=== PATIENT | female | born 1955 | race Caucasian/White ===

== ENCOUNTER 2018-10-08 21:36 | Observation (INO) | payer OTHER ==
[2018-10-08] MEDS ORDERED: NS 0.9% 1000 ML* 1,000 ML IV ONE (22:19)
[2018-10-08] MEDS ORDERED: Ondansetron INJ* 2 MG/ML VIAL IV ONE (22:20)
[2018-10-08] MEDS ORDERED: Morphine VIAL* 4 MG/ML VIAL (1 ml vial) IV ONE (22:21)
--- NOTE | 2018-10-08 22:45 | ED ---
Abdominal Pain/Female - HPI Summary HPI Summary: A 63 y/o female accompanied by her presents to the ED c/o right upper quadrant abdominal pain. Currently, the patient is still experiencing severe right upper quadrant abdominal pain reaching 10/10 in severity. As per triage, "Pt c/o RUQ pain since yesterday. States she noted the pain post eating. Reports nausea and vomiting". According to the patient, she has been experiencing this RUQ abdominal pain for the past 2 days. She additionally has nausea and vomiting. She denies any diarrhea, but does have constipation. Patient also denies any vaginal discharge, vaginal bleeding, urinary pain or burning, or hematuria. Patient has no heart or lungs problems. No PMHx of cholecystectomy. Patient would like some pain medications. - History of Current Complaint Chief Complaint: EDAbdPain Stated Complaint: ABD PAIN Time Seen by Provider: 10/08/18 22:02 Hx Obtained From: Patient Onset/Duration: Sudden Onset, Lasting Days, Still Present Timing: Constant Severity Initially: Severe - 10/10 Severity Currently: Severe - 10/10 Pain Intensity: 10 Pain Scale Used: 0-10 Numeric Location: Discrete At: RUQ Radiates: No Aggravating Factor(s): Nothing Alleviating Factor(s): Nothing Allergies/Adverse Reactions: Allergies Allergy/AdvReac Type Severity Reaction Status Date / Time latex Allergy Mild Rash Verified 10/08/18 21:52 PMH/Surg Hx/FS Hx/Imm Hx Endocrine/Hematology History: Denies: Hx Diabetes, Hx Systemic Lupus Erythematosus, Hx Thyroid Disease Cardiovascular History: Reports: Hx Hypertension - on medications Denies: Hx Congestive Heart Failure Respiratory History: Denies: Hx Asthma, Hx Chronic Obstructive Pulmonary Disease (COPD) GI History: Reports: Hx Gastroesophageal Reflux Disease - TAKES OMEPRAZOLE DAILY Denies: Hx Ulcer History: Denies: Hx Dialysis, Hx Renal Disease Musculoskeletal History: Denies: Hx Rheumatoid Arthritis Sensory History: Reports: Hx Contacts or Glasses - GLASSES Denies: Hx Hearing Aid Opthamlomology History: Reports: Hx Contacts or Glasses - GLASSES Psychiatric History: Reports: Hx Depression - TAKES LEXAPRO - Cancer History Hx Chemotherapy: No - Surgical History Surgery Procedure, Year, and Place: Vein stripping 2010 Dr Quinonez 5X. Hx Anesthesia Reactions: No Infectious Disease History: No Infectious Disease History: Denies: Hx Hepatitis, Hx Human Immunodeficiency Virus (HIV), Traveled Outside the [place] in Last 30 Days - Family History Known Family History: Positive: Hypertension, Diabetes - Social History Alcohol Use: None Substance Use Type: Reports: None Smoking Status (MU): Never Smoked Tobacco Have You Smoked in the Last Year: No Review of Systems Negative: Fever Positive: Abdominal Pain, Vomiting, Nausea, Other - POSITIVE: CONSTIPATION. Negative: Diarrhea Negative: burning, dysuria, discharge, hematuria, pain All Other Systems Reviewed And Are Negative: Yes Physical Exam - Summary Physical Exam Summary: Appearance: Well appearing, Skin: warm, dry, reflects adequate perfusion Head/face: normal Eyes: EOMI, FELICITA ENT: normal Neck: supple, non-tender Respiratory: CTA, breath sounds present Cardiovascular: RRR, pulses symmetrical Abdomen: tenderness in right upper quadrant Musculoskeletal: normal, strength/ROM intact Neuro: normal, sensory motor intact, A&Ox3 Triage Information Reviewed: Yes Vital Signs On Initial Exam: Initial Vitals Temp Pulse Resp BP Pulse Ox 99.0 F 72 18 182/93 96 10/08/18 21:49 10/08/18 21:49 10/08/18 21:49 10/08/18 21:49 10/08/18 21:49 Vital Signs Reviewed: Yes Diagnostics - Vital Signs Vital Signs Temp Pulse Resp BP Pulse Ox 10/08/18 22:34 20 10/08/18 21:49 99.0 F 72 18 182/93 96 - Laboratory Result Diagrams: 10/08/18 22:54 10/08/18 22:54 Lab Statement: Any lab studies that have been ordered have been reviewed, and results considered in the medical decision making process. - Radiology CXR Radiology Interpretation Completed By: ED Physician Summary of Radiographic Findings: NO ACUTE INFILTRATE. PENDING OFFICIAL REPORT. - CT CT A/P CT Interpretation Completed By: Radiologist Summary of CT Findings: 1. Cholelithiasis without findings of acute cholecystitis. No additional. findings to correlate with patient's symptomatology. 2. Nonobstructing left renal calculus. 3. Bosniak type I renal cysts. No followup indicated. ED PHYSICIAN REVIEWED THIS RADIOLOGY REPORT. ED PHYSICIAN REVIEWED THIS RADIOLOGY REPORT. - Ultrasound No standard instances Ultrasound Interpretation Completed By: Radiologist Summary of Ultrasound Findings: GALLBLADDER US: 1. Cholelithiasis without additional findings of cholecystitis. 2. Hepatic steatosis and associated hepatomegaly. ED PHYSICIAN REVIEWED THIS RADIOLOGY REPORT. - EKG 2245 Cardiac Rate: NL - 68 BPM EKG Rhythm: Sinus Rhythm - [address] Segment: Non-Specific Re-Evaluation - Re-Evaluation First Eval Re-Evaluation Time: 01:40 Change: Unchanged Comment: PATIENT STILL IN PAIN. Abdominal Pain Fem Course/Dx - Course Course Of Treatment: A 63 y/o female accompanied by her presents to the ED c/o right upper quadrant abdominal pain. Currently, the patient is still experiencing severe right upper quadrant abdominal pain reaching 10/10 in severity. According to the patient, she has been experiencing this RUQ abdominal pain for the past 2 days. She additionally has nausea and vomiting. She denies any diarrhea, but does have constipation. Patient also denies any vaginal discharge, vaginal bleeding, urinary pain or burning, or hematuria. Physical examination findings significant for right upper quadrant tenderness. A CXR revealed no acute infiltrate. A CT A/P revealed 1. Cholelithiasis without findings of acute cholecystitis. No additional findings to correlate with patient's symptomatology. 2. Nonobstructing left renal calculus. 3. Bosniak type I renal cysts. No followup indicated. A Gallbladder US revealed 1. Cholelithiasis without additional findings of cholecystitis. 2. Hepatic steatosis and associated hepatomegaly. An EKG revealed NSR of 68 BPM, non- specific ST. Hematology, Chemistry, and urinalysis screens were done. No significant laboratory abnormalities were found. In the ED course, the patient received Dilaudid, Zofran, Piperacillin, and IV fluids. Patient care was discussed with Dr. Anthony Clemons, who recommends CAT scan. Dr. Clemons than accepts patient for admission. Patient will be admitted with a diagnosis of cholelithasis and abdominal pain. Patient is agreeable with this plan. - Diagnoses Differential Diagnosis: Positive: Diverticulitis, Gall Bladder Disease, Pancreatitis, Renal Colic Provider Diagnoses: Cholelithiasis, Abdominal pain - Provider Notifications Discussed Care Of Patient With: Anthony Clemons Time Discussed With Above Provider: 00:08 Instructed by Provider To: Other - RECOMMENDS CAT SCAN. 0200 - Accepts patient for admission. Discharge - Sign-Out/Discharge Documenting (check all that apply): Patient Departure - ADMIT, Sign-Out Patient - LINA Signing out patient TO: Anthony Clemons Receiving patient FROM: Ludwin Ashby - Discharge Plan Condition: Stable Disposition: ADMITTED TO [facility] - Billing Disposition and Condition Condition: STABLE Disposition: Admitted to [facility] - Attestation Statements Document Initiated by Abram: Yes Documenting Scribe: Adan Santo Provider For Whom Abram is Documenting (Include Credential): Ludwin Ashby MD Scribe Attestation: Adan Davis, scribed for Ludwin Ashby MD on 10/09/18 at 0245. Scribe Documentation Reviewed: Yes Provider Attestation: The documentation as recorded by the Adan little accurately reflects the service I personally performed and the decisions made by Ludwin sheriff MD Status of Scribe Document: Viewed
[2018-10-08 22:51] LABS: Urine Appearance Turbid; Urine Bilirubin Negative (Negative); Urine Blood Negative (Negative); Urine Color Yellow; Urine Glucose 1+(50 mg/dL) (Negative); Urine Ketones Trace (Negative); Urine Nitrite Negative (Negative); Urine Protein Negative (Negative); Urine Specific Gravity 1.026 (1.010-1.030); Urine Urobilinogen Positive (Negative)
[2018-10-08 23:01] LABS: ABS Basophils 0 10^3/ul (0-0.2); ABS Eosinophils 0 10^3/ul (0-0.6); ABS Lymphocytes 1.1 10^3/ul (1.0-4.8); ABS Monocytes 0.2 10^3/ul (0-0.8); ABS Neutrophils 5.5 10^3/ul (1.5-7.7); ABS Nucleated RBC 0 10^3/ul; Eosinophil % 0.2 %; Hematocrit 42 % (35-47); Hemoglobin 14.1 g/dl (12.0-16.0); Lymphocyte % 16.3 %; Mean Corpuscular HGB Conc 34 g/dl (31-36); Mean Corpuscular Hemoglobin 30 pg (27-31); Mean Corpuscular Volume 88 fL (80-97); Mean Platelet Volume 8.3 fL (7.4-10.4); Nucleated Red Blood Cells % 0; Platelet Count 173 10^3/ul (150-450); Red Blood Count 4.73 10^6/ul (4.00-5.40); Red Cell Distribution Width 14 % (10.5-15); White Blood Count 6.9 10^3/ul (3.5-10.8)
[2018-10-08 23:14] LABS: INR 1.08 (0.77-1.02)
[2018-10-08 23:18] LABS: Albumin 3.9 g/dL (3.2-5.2); Albumin/Globulin Ratio 1.6 (1-3); BUN/Creatinine Ratio 23.9 (8-20); Calcium 8.9 mg/dL (8.6-10.3); EGFR Non-African American 88.6 (>60); Globulin 2.4 g/dL (2-4); Potassium 3.4 mmol/L (3.5-5.0); Total Bilirubin 1.3 mg/dL (0.2-1.0); Total Protein 6.3 g/dL (6.4-8.9)
[2018-10-09] MEDS ORDERED: HYDROmorphone INJ* 2 MG/ML CARPUJECT SYRINGE IV SLOW PU ONE (00:02)
[2018-10-09] MEDS ORDERED: HYDROmorphone INJ1* 1 MG/ML SYRINGE ONE (00:06)
[2018-10-09] MEDS ORDERED: HYDROmorphone INJ1* 1 MG/ML SYRINGE IV SLOW PU ONE (00:09)
[2018-10-09] MEDS ORDERED: Iohexol 300* (CONTRAST) 10 ML SDV IV ONE (00:44)
[2018-10-09] MEDS ORDERED: Ondansetron INJ* 2 MG/ML VIAL IV PRN (01:57)
[2018-10-09] MEDS ORDERED: Piperacillin/Tazobac ADVAN(*) 3.375 GM in NS 0.9% 100 ML* 100 ML IVPB ONE (01:57)
[2018-10-09] MEDS: NS 0.9% 1000 ML* 1,000 ML IV SCH ×2 (03:07→17:24)
[2018-10-09] MEDS: HYDROmorphone INJ* 0.5 MG/0.5 ML SYRINGE IV SLOW PU PRN ×6 (03:08→19:42)
--- NOTE | 2018-10-09 08:57 | CONSULT ---
Consult Consult: HOSPITALIST CONSULTATION: REQUESTING PROVIDER: Dr. Clemons REASON FOR CONSULTATION: Pre-op cardiac risk stratification HPI: Ms Quiroz is a 63 yo F who has a h/o HTN, anxiety and GERD who noted a couple months ago she had RUQ abdominal pain. It went away on its own and she never sought evaluation. This past 10/07/18, she again developed severe RUQ abdominal pain. She describes this as both crampy and stabbing at times. She has associated nausea and poor appetite. She presented to the ER where she was identified to have acute cholecystitis. Hospitalist consultation was requested for pre-op cardiac risk stratification. The patient states she is able to walk long distances without needing to stop to catch her breath and she can climb a flight of stairs without chest pain or SOB. She does not have CP or SOB at any other times either. She states she had a stress test several years ago with Dr. Cavazos. Results from this are unobtainable at this time. She does not report having any further testing after the stress test nor does she give a history of CAD. PMHx: HTN, anxiety, GERD PSHx: bilateral vein stripping All: latex Med: bisoprolol/HCTZ 10-6.25 1 tab po daily; lexapro 10mg daily; omeprazole 20mg daily FamHx: Mom of liver failure at 79 (unclear what caused her liver failure); dad at 69 of [place] SocHx: Pt is a life long non-smoker, she does not drink EtOH, she is retired from food service utility worker; she is and has 2 children who are healthy. Her Hakeem is her HCP. ROS: a complete 11 system ROS is obtained, pertinent positives and negatives are as per HPI and otherwise negative. PE: BP159/80 HR87 RR14 T98.3 O2 sat 94% on RA\ general: pt is a well developed middle aged female lying in bed, at times appearing uncomfortable but in NAD HEENT: EOMI, oropharynx is dry, no adenopathy noted cardiac: nl S1S2 RRR, no murmurs, no LE edema pulmonary: lungs are CTA bilaterally abdomen: BS hypoactive, soft, ND, tender to palpation in the RUQ musculoskeletal: full ROM of all 4 extremities skin: warm and dry, no rashes neuro: CN II-XII grossly intact, strength is normal throughout psych: A&Ox3 Labs: reviewed A/P: Ms Quiroz is a 63 yo F who has a h/o HTN who presented to the ER with RUQ pain and was found to have acute cholecystitis. 1. Acute cholecystitis: plan is for the OR this AM. The patient's EKG from last evening does have ST depressions in the lateral leads and while her troponin is negative and she does not give any history of CAD, chest pain or SOB, I feel she should undergo echocardiogram prior to proceeding. I have ordered the echo and alerted the experimental technician. The patient's RCRI is 1 giving her a 0.% risk of major cardiac event. If the echo is without any concerning features the patient should proceed to the OR. I am also ordering a repeat EKG to re-evaluate the ST depressions. 2. HTN: will hold bisoprolol/HCTZ and give biosprolol 5mg po now. Post op the patient can resume bisoprolol 10mg daily and on d/c likely add back HCTZ. 3. Anxiety: resume lexapro post op 4. GERD: continue omeprazole post op 5. I will continue to follow.
[2018-10-09] MEDS ORDERED: Bisoprolol TAB* 5 MG PO ONE (09:00)
--- NOTE | 2018-10-09 10:43 | ECHO ---
Patient: MARYLOU BLUE [facility] Rec#: [id number] : 1955 Date: 10/09/2018 Age: 63y Height: 167.64 cm / 66.0 in Weight: 90.72 kg / 199.9 lbs Sex: F BSA: 2 Room#: 340 Admit Date#: 10/09/2018 Type: Inpatient Referring: Summer Frye DO Reading: Quang Broussard MD Insulation Engineman: Lacie Matthews RDCS CC: Pamela Cadena MD Transthoracic Echocardiogram Indication: Abn EKG BP: 159/80 HR: 101 Rhythm: Tachycardia Findings History: RUQ pain,depression,nonsmoker,nonspecific ST changes on EKG,GERD. Technical Comments: The study is technically difficult. Completed at 0940. The study is technically limited due to patient body habitus. Left Ventricle: The left ventricular chamber size is decreased. Mild concentric left ventricular hypertrophy is observed. Global left ventricular wall motion and contractility are within normal limits. There is normal left ventricular systolic function. The estimated ejection fraction is 55-60%. Abnormal left ventricular diastolic function is observed. Left Atrium: The left atrium is mildly dilated. Right Ventricle: The right ventricular cavity size is normal. The right ventricular global systolic function is normal. Right Atrium: The right atrial cavity size is normal. Aortic Valve: The aortic valve is trileaflet. There is no evidence of aortic regurgitation. There is no evidence of aortic stenosis. Mitral Valve: The mitral valve leaflets are mildly thickened. There is a trace of mitral regurgitation. There is no evidence of mitral stenosis. Tricuspid Valve: The tricuspid valve leaflets are normal. There is trace tricuspid regurgitation. Unable to estimate the right ventricular systolic pressure. There is no tricuspid stenosis. Pulmonic Valve: The pulmonic valve appears normal. There is trace to mild pulmonic regurgitation. There is no pulmonic stenosis. Pericardium: A pericardial fat pad is visualized. Aorta: There is no dilatation of the ascending aorta. There is no dilatation of the aortic arch. There is no dilation of the aortic root. Pulmonary Artery: The main pulmonary artery appears normal. Venous: The venous system is not well visualized. Patient refused subcostal view due to abdominal pain. Summary: There was not any prior study for comparison. Conclusions Mild concentric left ventricular hypertrophy is observed. Global left ventricular wall motion and contractility are within normal limits. The estimated ejection fraction is 55-60%. There is no evidence of aortic stenosis. There is a trace of mitral regurgitation. There is trace tricuspid regurgitation. Unable to estimate the right ventricular systolic pressure. Measurements Name Value Normal Range RVIDd (AP) 2D 3 cm (0.9 - 2.6) RVDdMajor (2D) 2.8 cm (2.2 - 4.4) RAd ISD 4CH 3.9 cm (3.4 - 4.9) RA (A4C)W 3.3 cm (2.9 - 4.6) IVSd (2D) 1.2 cm (0.6 - 1) LVPWd (2D) 1.1 cm (0.6 - 1) LVIDd (2D) 3.3 cm (3.6 - 5.4) LVIDs (2D) 2.3 cm - LV FS (2D) 31 % (25 - 45) Aortic Annulus 2.3 cm (1.4 - 2.6) Ao root diameter (2D) 3.5 cm (2.1 - 3.5) Ascending Ao 3.3 cm (2.1 - 3.4) Aortic arch 2.4 cm (1.8 - 3.4) Descending Ao 0.8 cm - LA dimension (AP) 2D 4 cm (2.3 - 3.8) LAd ISD 4CH 4.9 cm (2.9 - 5.3) LA ISD 4CH W 3.3 cm (2.5 - 4.5) Name Value Normal Range LA ESV SP 4CH (A/L) 38 ml - LA ESV SP 2CH (A/L) 41 ml - LA ESV BP (A/L) 40 ml - LA ESV BP (A/L) index 19.8 ml/m2 - LA ESV SP 4CH (MOD) 37 ml - LA ESV SP 2CH (MOD) 39 ml - Name Value Normal Range MV E-wave Vmax 0.7 m/sec - MV deceleration time 204 msec - MV A-wave Vmax 1 m/sec - MV E:A ratio 0.75 ratio - LV septal e' Vmax 0.08 m/sec - LV lateral e' Vmax 0.09 m/sec - LV E:e' septal ratio 8.75 ratio - LV E:e' lateral ratio 7.78 ratio - Name Value Normal Range AV Vmax 1.3 m/sec - AV VTI 27.6 cm - AV peak gradient 6.74 mmHg - AV mean gradient 3.27 mmHg - LVOT Vmax 1.1 m/sec - LVOT VTI 22.7 cm - LVOT peak gradient 5.1 mmHg - LVOT mean gradient 2.24 mmHg - Name Value Normal Range PV Vmax 0.8 m/sec - PV peak gradient 2.83 mmHg -
--- NOTE | 2018-10-09 12:03 | HP ---
CC: Dr. Pamela Cadena * HISTORY AND PHYSICAL: DATE OF ADMISSION: 10/09/18 CHIEF COMPLAINT: Epigastric and right upper quadrant abdominal pain. HISTORY OF PRESENT ILLNESS: Ms. Lakeisha Quiroz is a very pleasant 63-year-old woman who, on Wednesday evening, developed some epigastric and right upper quadrant abdominal pain, radiating to her back. She has had several episodes of this pain that have only lasted for several hours and she has not sought care for this in the past. She developed some nausea and vomiting yesterday. The pain has persisted over the past 36 hours, with worsening in severity, and she presented to the emergency room early this morning. She denied fevers, shakes or chills. She has had no jaundice. She has had no lower abdominal pain or change in bowel habits. She does have a history of gastroesophageal reflux disease. In the emergency room, she was noted to have a normal white blood cell count. Electrolytes, BUN, and creatinine were within normal limits. She had a total bilirubin of 1.3, with AST and ALT of 88 and 65, and an alkaline phosphatase of 105, all of which were slightly elevated. Lipase was normal. She initially underwent an ultrasound of her gallbladder. I did review these images. These showed gallstones with some associated sludge. There appear to be possibility of a gallstone in the neck of gallbladder. There was no gallbladder wall thickening or pericholecystic fluid. The common bile duct measured 0.6 cm. She also underwent a CT scan of the abdomen and pelvis. I did review these images. These showed no evidence of thickening of the gallbladder wall or pericholecystic fluid/inflammation. There were no other acute findings noted. In light of her persistent discomfort in the right upper quadrant and gallstones and mild elevation of her transaminase and total bilirubin, it was felt that she most likely had acute calculous cholecystitis, so she was admitted for further care. PAST MEDICAL HISTORY: 1. Hypertension. 2. Gastroesophageal reflux disease. 3. Depression. PAST SURGICAL HISTORY: Venous surgery in the lower extremities. She has had no abdominal surgery. MEDICATIONS: Include: 1. Bisoprolol/hydrochlorothiazide 10/6.25 mg, 1 tablet p.o. q.a.m. 2. Lexapro 10 mg q.a.m. 3. Omeprazole 20 mg q.a.m. ALLERGIES: She is allergic to LATEX. SOCIAL HISTORY: She does not smoke or drink. She is and retired. REVIEW OF SYSTEMS: Otherwise unremarkable and as per above. PHYSICAL EXAMINATION GENERAL: She is an overweight female with normal attention to grooming. She is awake, alert, and conversive. VITAL SIGNS: Temperature 98.3, pulse 87, blood pressure 159/80, and respirations 16. LUNGS: Clear to auscultation with normal respiratory effort. HEART: Regular rate and rhythm, without murmurs, rubs or gallops. ABDOMEN: Soft, slightly distended. There are no prior surgical incisions. There are no hernias noted. She has tenderness in the epigastrium and right upper quadrant with some voluntary guarding. There is no generalized peritoneal irritation. PSYCHIATRIC: She is awake, alert, and oriented x3. She has normal judgment and insight. EXTREMITIES: No cyanosis or edema. IMPRESSION: 1. Cholelithiasis and right upper quadrant abdominal pain. She has some mild elevation of total bilirubin and liver transaminases. I suspect that she has acute calculous cholecystitis by her history of persistent pain over the past 36 hours despite the findings on the CT scan. 2. Hypertension. 3. EKG was reviewed. There may be some ST changes noted inferiorly. PLAN: 1. The patient will be admitted to the surgical service on short-stay unit. 2. IV antibiotics including IV Zosyn as well as IV fluids have been started. 3. She will be kept n.p.o. 4. Medical evaluation will be obtained in anticipation of a cholecystectomy either today or tomorrow. 5. Laparoscopic cholecystectomy. I recommend that she proceed as her pain has persisted, going on for 48 hours now, and she does have gallstones. I suspect she has acute calculous cholecystitis. We discussed the risks of, but not limited to, bleeding, infection, common bile duct injury requiring further reconstruction, possibility of an open procedure, abscess formation, bile leak, risk of general anesthesia, injury to peritoneal and retroperitoneal structures , deep vein thrombosis, and pulmonary embolism were all discussed. We discussed postoperative recovery times and possible hospital stay. The alternative of IV antibiotics with nonoperative management were discussed, but I do not believe that she will respond well to this and surgery is recommended and she wishes to proceed. [id number]/[facility] #: [id number] [facility]
[2018-10-09] MEDS ORDERED: Dexamethasone IV* 4 MG/ML 1 ML (4 MG) ONE (12:14)
[2018-10-09] MEDS ORDERED: KETAMINE HCL* 50 MG/ML 10 ML VIAL ONE (12:14)
[2018-10-09] MEDS ORDERED: Midazolam* 1 MG/ML 5 ML VIAL (5 MG) ONE (12:14)
[2018-10-09] MEDS ORDERED: fentaNYL* 50 MCG/ML 2 ML VIAL (100 MCG VIAL) ONE ×3 (12:14→16:40)
[2018-10-09] MEDS ORDERED: Ondansetron INJ* 2 MG/ML VIAL ONE (12:14)
[2018-10-09] MEDS ORDERED: Propofol* 10 MG/ML 20 ML BTL ONE (12:14)
[2018-10-09] MEDS ORDERED: Cisatracurium* 2 MG/ML MDV 5 ML ONE (12:14)
[2018-10-09] MEDS ORDERED: Ketorolac INJ* 30 MG/ML 1 ML VIAL ONE (12:14)
[2018-10-09] MEDS ORDERED: Lidocaine 2% PF * 5 ML VIAL ONE (12:14)
[2018-10-09] MEDS ORDERED: Bupivacaine 0.25% W/EPI* 10 ML SDV ONE (12:17)
[2018-10-09] MEDS ORDERED: Scopolamine 1.5 mg* PATCH ONE (12:33)
[2018-10-09] MEDS ORDERED: Famotidine IV* 10 MG/ML 2 ML (20 mg) ONE (13:25)
[2018-10-09] MEDS ORDERED: Metoclopramide IV* 5 MG/ML 2 ML VIAL ONE (13:25)
[2018-10-09] MEDS ORDERED: EPHEDrine (Pressors)* 50 MG/ML VIAL ONE (13:28)
[2018-10-09] MEDS ORDERED: Glycopyrrolate IV* 0.2 MG/ML 1 ML VIAL ONE (14:09)
[2018-10-09] MEDS ORDERED: Neostigmine Methylsulfate* 1 MG/ML 10 ML VIAL (1 mg/ml) ONE (14:09)
--- NOTE | 2018-10-09 14:34 | BRIEFOPN ---
Brief Operative Note - Surgery Procedures: Procedures OPERATIVE REPORT PRE-OP: Acute calculous cholecystitis POST-OP:Acute calculous gangrenous cholecystitis PROCEDURE:Laparoscopic Cholecystectomy SURGEON: MD Deonte ANESTHESIA:Local with General, Dr. Wick ASST:none IVF:1900 cc crystalloid EBL:NR SPECIMEN:Gallbladder DRAIN:#10 PATY in RUQ WOUND CLASS:4 COMPLICATIONS: none TO PACU
[2018-10-09] MEDS ORDERED: Naloxone* 0.4 MG/ML 1 ML VIAL IV PRN (16:23)
[2018-10-09] MEDS ORDERED: HYDROmorphone INJ1* 1 MG/ML SYRINGE IV PRN (17:08)
[2018-10-09] MEDS ORDERED: oxyCODONE/Acetamin 5/325 MG* TAB PO PRN (17:09)
[2018-10-09] MEDS ORDERED: ZOSYN 3.375 GM x ONE DOSE over 30 miuntes IVPB ×2 (18:00)
[2018-10-09] MEDS: Ketorolac INJ* 30 MG/ML 1 ML VIAL IV PRN (19:42)
--- NOTE | 2018-10-09 21:17 | OP ---
CC: Dr. Pamela Cadena, Primary Medicine * DATE OF OPERATION: 10/09/18 - ROOM #340 DATE OF : 53 SURGEON: Anthony Clemons MD DEPORTATION OFFICER: None. ANESTHESIOLOGIST: Dr. Wick. ANESTHESIA: General with local. PRE-OP DIAGNOSIS: Acute calculus cholecystitis. POST-OP DIAGNOSIS: Acute calculus gangrenous cholecystitis. OPERATIVE PROCEDURE: Laparoscopic cholecystectomy. ESTIMATED BLOOD LOSS: Not recorded. IV FLUIDS: 1.9 L of crystalloid. SPECIMENS: Gallbladder. DRAINS: A #10 PAYT drain in the right upper quadrant. WOUND CLASSIFICATION: IV. COMPLICATIONS: None. BRIEF HISTORY: Lakeisha Quiroz is a 63-year-old woman who presented to the emergency room early this morning with severe right upper quadrant abdominal pain that started almost 48 hours ago. An ultrasound showed gallstones without gallbladder wall thickening or pericholecystic fluid and she had a normal white blood cell count. She had a mild elevation of her total bilirubin, however. CAT scan showed no other acute pathology. She has tenderness in the right upper quadrant on exam and in conjunction with the findings of the gallstones in her history, which is consistent with cholecystitis, she is being taken to the operating room after medical evaluation for cholecystectomy. The procedure was discussed with the patient and the risks that are but not limited to bleeding, infection, abscess formation, common bile duct injury, bile leak, abscess, possibility of an open procedure and the risks of anesthesia were all explained. DESCRIPTION OF PROCEDURE: Written informed consent was obtained, the abdomen was marked with indelible ink and preoperative antibiotics were administered. The patient was taken to the operating room and placed in the supine position. Sequential compression devices and a warming blanket were applied. General anesthesia was administered. Time-out verification was completed. A small transverse incision was made just above umbilicus at the midline. The peritoneal cavity was entered under direct vision. The abdomen was insufflated to 15 mmHg. Under direct vision, an 11-mm epigastric port was placed and two 5-mm ports were placed in the right side of the abdominal wall. The liver was identified. It had significant fatty infiltrate but no evidence of cirrhosis or nodularity. There was omentum that was adherent to the gallbladder and this was swept off using blunt dissection to expose a markedly distended gangrenous valenzuela colored gallbladder. I was unable to grasp this; however, we decompressed this with an 18-gauge needle of about 50 cc of dark green bile. The gallbladder was then able to be elevated up over the liver bed. There was a significant amount of inflammation down in the infundibular area, which was edematous and bled easily but the peritoneum along the medial and lateral aspects of the gallbladder was opened and this area was swept down. There was an enlarged lymph node, which was quite edematous, which was swept off the medial aspect of the gallbladder. With care, I was able to identify the cystic duct and artery as it entered the gallbladder and using the critical view technique, I took a considerable portion of the inferior part of the gallbladder off the liver bed to ensure myself of these two structures. The cystic duct was of expected caliber and was triply clipped and divided. The artery appeared to have several small branches, which were clipped. The gallbladder was then removed from the liver bed with cautery with some difficulty due to the inflammation. The gallbladder was placed in an EndoCatch bag and brought out through the epigastric incision. The liver bed was then irrigated as well as the right upper quadrant. Hemostasis was assured. There had been some spillage of bile while grasping but this was thoroughly irrigated. There were no stones that were left behind. A #10 PATY drain was placed in the right upper quadrant and brought out through the lateral 5 mm port site. This was sutured to the skin with a 3-0 Prolene suture. All ports were removed under direct vision of the camera. There was no abdominal wall bleeding. The umbilical fascia was closed with interrupted 0 Vicryl suture. The skin at all 3 incisions was approximated with subcuticular 4-0 Vicryl suture. Steri- Strips were placed. The patient tolerated the procedure well and was taken to the recovery room in stable condition. [id number]/[facility] #: [id number] SHANNAN
[2018-10-09] MEDS ORDERED: NS 0.9% 100 ML* 100 ML ONE (21:24)
[2018-10-09] MEDS: ZOSYN 3.375 GM Q8H per EXTENDED INFUSION IVPB SCH ×2 (21:27)
[2018-10-09] MEDS: Famotidine IV* 10 MG/ML 2 ML (20 mg) IV SCH (21:27)
[2018-10-10] MEDS: NS 0.9% 1000 ML* 1,000 ML IV SCH ×3 (02:26→20:36)
[2018-10-10] MEDS: ZOSYN 3.375 GM Q8H per EXTENDED INFUSION IVPB SCH ×6 (05:18→21:42)
[2018-10-10] MEDS: HYDROmorphone INJ* 0.5 MG/0.5 ML SYRINGE IV SLOW PU PRN (05:21)
--- NOTE | 2018-10-10 09:13 | PN ---
Progress Note - Progress Note Date of Service: 10/10/18 SOAP: Subjective: Feels much better Taking minimal po Passing flatus Objective: Temp Pulse Resp BP Pulse Ox 98.0 F 61 16 102/42 94 10/10/18 07:34 10/10/18 07:34 10/10/18 07:34 10/10/18 07:34 10/10/18 07:34 Intake & Output 10/08/18 10/09/18 10/10/18 10/11/18 06:59 06:59 06:59 06:59 Intake Total 1000 3595 Output Total 0 545 Balance 1000 3050 Weight 200 lb Intake: IV Fluids 1000 3195 LR 2000 zosyn 1095 Oral 0 400 Output: PATY #1 145 Urine 0 400 PEX: Comfortable Lungs are clear Abd is soft and non-distended. Bowel sounds are present. Incisions CDI PATY with small amount of SG fluid in bulb No leg edema Assessment: POD# 1 s/p lap choly for acute cholecytitis Taking minimal po Plan: IV abx for 24 more hours PATY drain Advance diet Increase activity Subq heparin Plan D/C 10/11--remove APTY on d/c, 5 days of antibiotics
[2018-10-10] MEDS: Ketorolac INJ* 30 MG/ML 1 ML VIAL IV PRN (09:39)
[2018-10-10] MEDS: Famotidine IV* 10 MG/ML 2 ML (20 mg) IV SCH (09:40)
--- NOTE | 2018-10-10 10:20 | PN ---
Subjective Date of Service: 10/10/18 Interval History: Pt is feeling much better today than when I met with her yesterday. She has mild pain. She has not taken much in by mouth and is not really passing gas. No BM. Objective Active Medications: Famotidine (Pepcid Iv*) 20 mg IV BID [facility] Last Admin: 10/10/18 09:40 Dose: 20 mg Heparin Sodium (Porcine) (Heparin Vial(*)) 5,000 units SUBCUT Q8HR [facility] Hydromorphone HCl (Dilaudid Inj*) 0.5 mg IV SLOW PU Q1H PRN PRN Reason: PAIN Last Admin: 10/10/18 05:21 Dose: 0.5 mg Hydromorphone HCl (Dilaudid Inj1s*) 1 mg IV Q1H PRN PRN Reason: SEVERE PAIN Sodium Chloride (Ns 0.9% 1000 Ml*) 1,000 mls @ 125 mls/hr IV PER RATE [facility] Last Admin: 10/10/18 02:26 Dose: 125 mls/hr Piperacillin Sod/Tazobactam (Sod 3.375 gm/ Sodium Chloride) 100 mls @ 25 mls/ hr IVPB Q8H [facility] Last Admin: 10/10/18 05:18 Dose: 25 mls/hr Ketorolac Tromethamine (Toradol Inj*) 30 mg IV Q6H PRN PRN Reason: PAIN Last Admin: 10/10/18 09:39 Dose: 30 mg Ondansetron HCl (Zofran Inj*) 4 mg IV Q6H PRN PRN Reason: NAUSEA Oxycodone/Acetaminophen (Percocet 5/325 Tab*) 2 tab PO Q4H PRN PRN Reason: SEVERE PAIN Oxycodone/Acetaminophen (Percocet 5/325 Tab*) 1 tab PO Q4H PRN PRN Reason: PAIN Vital Signs - 8 hr 10/10/18 10/10/18 10/10/18 03:19 04:04 05:21 Temperature 97.6 F Pulse Rate 62 Respiratory 16 18 Rate Blood Pressure 120/46 (mmHg) O2 Sat by Pulse 94 95 Oximetry 10/10/18 10/10/18 10/10/18 06:22 07:34 09:40 Temperature 98.0 F Pulse Rate 61 Respiratory 16 16 18 Rate Blood Pressure 102/42 (mmHg) O2 Sat by Pulse 94 Oximetry Oxygen Devices in Use Now: None Appearance: Middle aged female sitting up in bed, NAD Eyes: No Scleral Icterus Ears/Nose/Mouth/Throat: Mucous Membranes Moist Respiratory: Symmetrical Chest Expansion and Respiratory Effort, Clear to Auscultation Cardiovascular: NL Sounds; No Murmurs; No JVD, RRR, No Edema Abdominal: - - BS hypoactive, soft Extremities: No Clubbing, Cyanosis Skin: No Nodules or Sclerosis Neurological: Alert and Oriented x 3 Result Diagrams: 10/08/18 22:54 10/08/18 22:54 Assess/Plan/Problems-Billing Ms Quiroz is a 63 yo F who has a h/o HTN, anxiety and GERD who presented to the ER with c/o RUQ abdominal pain and was admitted for acute cholecystitis. - Patient Problems (1) Acute acalculous cholecystitis Current Visit: Yes Status: Acute Code(s): K81.0 - ACUTE CHOLECYSTITIS SNOMED Code(s): 96095642 Comment: The patient was found to have acute acalculous gangrenous cholecystitis in the OR. Per Dr. Clemons plan is to continue IV Abx [id number] hours and d/c home tomorrow. Increase diet and await BM. (2) HTN (hypertension) Current Visit: Yes Status: Acute Code(s): I10 - ESSENTIAL (PRIMARY) HYPERTENSION SNOMED Code(s): 11468120 Comment: BP is low normal today. Hold bisoprolol/HCTZ today and resume on d/ c if SBP>110. (3) Anxiety Current Visit: Yes Status: Acute Code(s): F41.9 - ANXIETY DISORDER, UNSPECIFIED SNOMED Code(s): 48591858 Comment: Resume lexapro. (4) GERD (gastroesophageal reflux disease) Current Visit: Yes Status: Acute Code(s): K21.9 - GASTRO-ESOPHAGEAL REFLUX DISEASE WITHOUT ESOPHAGITIS SNOMED Code(s): 358434230 Comment: Stop IV pepcid and change to oral omeprazole. (5) DVT prophylaxis Current Visit: Yes Status: Acute Code(s): NAL1425 - SNOMED Code(s): 089898443 Comment: SQ heparin (6) Full code status Current Visit: Yes Status: Acute Code(s): Z78.9 - OTHER SPECIFIED HEALTH STATUS SNOMED Code(s): 338646709 Status and Disposition: Will sign off, please contact [phone] for further questions.
[2018-10-10 10:29] LABS: Activated Partial Thrombo Time 31.9 seconds (26.0-36.3); INR 1.25 (0.77-1.02)
[2018-10-10] MEDS: Omeprazole CAP* 20 MG PO SCH (11:13)
[2018-10-10] MEDS: Heparin VIAL(*) 5000 UNITS/ML VIAL (FIVE THOUSAND) SUBCUT SCH ×2 (14:03→21:42)
[2018-10-10] MEDS: CMC:Escitalopram (NF) 10 MG TAB PO SCH (14:03)
[2018-10-10] MEDS: oxyCODONE/Acetamin 5/325 MG* TAB PO PRN ×2 (14:55→21:40)
[2018-10-11] MEDS: NS 0.9% 1000 ML* 1,000 ML IV SCH (04:37)
[2018-10-11] MEDS: Heparin VIAL(*) 5000 UNITS/ML VIAL (FIVE THOUSAND) SUBCUT SCH (05:34)
[2018-10-11] MEDS: ZOSYN 3.375 GM Q8H per EXTENDED INFUSION IVPB SCH ×2 (05:34)
[2018-10-11] MEDS: Ketorolac INJ* 30 MG/ML 1 ML VIAL IV PRN (06:23)
[2018-10-11] MEDS: CMC:Escitalopram (NF) 10 MG TAB PO SCH (08:18)
[2018-10-11] MEDS: Omeprazole CAP* 20 MG PO SCH (08:18)
[2018-10-11 08:25] VITALS: BP 116/57
--- NOTE | 2018-10-11 09:12 | PN ---
Progress Note - Progress Note Date of Service: 10/11/18 Note: POD#2 S/P cholecystctomy Afeb, VS noted Rosalba po's Voiding Pain control OK PATY serous, No bile Abd benign PATY removed Discharge home
--- NOTE | 2018-10-14 11:09 | DS ---
CC: [facility]; Dr. Pamela Cadena* DISCHARGE SUMMARY: DATE OF ADMISSION: 10/09/18. DATE OF DISCHARGE: 10/11/18. PRINCIPAL DIAGNOSIS: Acute gangrenous calculus cholecystitis. PROCEDURE PERFORMED: Laparoscopic cholecystectomy. SECONDARY DIAGNOSES: 1. Hypertension. 2. Gastroesophageal reflux disease. DISPOSITION: To home. CONDITION ON DISCHARGE: Good. DISPOSITION INSTRUCTION: The patient was given prescription for Percocet for discomfort to use sparingly. She was instructed to use non-steroidal pain medicine or plain Tylenol as initial pain management regimen. She is also given 5 days of oral Augmentin to take. PATY drain was removed on the day of discharge. Follow up appointment was made in the [facility] in 7 to 10 days and she was given written instructions for further follow up. HISTORY OF PRESENT ILLNESS: Ms. Lakeisha Quiroz is a 63-year-old woman who presented to the emergency room with almost 48 hours of severe epigastric right upper quadrant abdominal discomfort. She was noted to have a normal white blood cell count with mild elevation of her total bilirubin, liver transaminases. An ultrasound of the gallbladder was obtained which showed gallstones and biliary sludge without additional findings of cholecystitis. She was seen in surgical consultation in the emergency room due to persistent discomfort, felt to have acute calculus cholecystitis and was admitted to the surgical service. HOSPITAL COURSE: The patient was admitted to surgical service, kept n.p.o. and started on IV fluids and IV antibiotics. On hospital day#1, she underwent laparoscopic cholecystectomy for acute gangrenous cholecystitis. A PATY drain was placed and maintained in position for 48 hours postoperatively. She was maintained on IV antibiotics. Postoperatively, she did well. She remained afebrile. Her diet was advanced as tolerated. Her pain was adequately controlled on oral analgesia and PATY drain was discontinued on hospital day#2. She was discharged to home on postoperative day#2 with the above instructions. [id number] #: [id number] MTDD
== END 2018-10-11 10:00 | disposition home or self-care (01) ==
LOC: ED 21:36 → SSU 10-09 01:54
PROVIDERS: ADMIT Surgery; ATTEND Surgery
DX: K80.00 Calculus of gallbladder with acute cholecystitis without obstruction (principal); K82.A1 Gangrene of gallbladder in cholecystitis; I10 Essential (primary) hypertension; K21.9 Gastro-esophageal reflux disease without esophagitis; F32.9 Major depressive disorder, single episode, unspecified; Z91.040 Latex allergy status
CPT/HCPCS: 36415; 71045; 74177; 76705; 80053; 81003; 83605; 83690; 84484; 85025; 85610; 85730; 88304; 93005; 93306; 96374; 96375; 96376; 99284; A9270-GY; G0378; J1100; J1170; J1644; J1885; J2250; J2270; J2405; J2543; J2704; J2710; J2765; J3010; Q9967

== ENCOUNTER 2019-06-17 17:50 | Emergency (ER) | payer OTHER ==
--- NOTE | 2019-06-17 18:12 | ED ---
HPI Chest Pain - HPI Summary HPI Summary: Patient complains of sudden onset upper right lateral chest wall pain starting this afternoon. Pain initially mild, but has been progressive. Worse with movement, deep inhalation, described as sharp, constant. Denies fever, cough, sore throat, CP, SOB, N/V/D, abdominal pain, change in urine, change in BM, vaginal symptoms. Medical history is HTN, GERD. History of acalculus cholecystitis with gallbladder removed in September 2018. Nonsmoker. Denies cardiac history. Took ibuprofen 400 mg at 3 PM with no relief. - History of Current Complaint Chief Complaint: EDGeneral Time Seen by Provider: 06/17/19 18:01 Hx Obtained From: Patient Onset/Duration: Started Hours Ago Timing: Constant Initial Severity: Mild Current Severity: Severe - With movement Pain Intensity: 10 Pain Scale Used: 0-10 Numeric Chest Pain Location: Right Lateral Chest Pain Radiates: No Character: Sharp/Stabbing Aggravating Factor(s): Movement, Deep Breaths Alleviating Factor(s): Nothing Associated Signs and Symptoms: Positive: Negative - Additional Pertinent History Primary Care Physician: VIVIANA - Allergy/Home Medications Allergies/Adverse Reactions: Allergies Allergy/AdvReac Type Severity Reaction Status Date / Time latex Allergy Mild Rash Verified 10/08/18 21:52 PMH/Surg Hx/FS Hx/Imm Hx Endocrine/Hematology History: Denies: Hx Diabetes, Hx Systemic Lupus Erythematosus, Hx Thyroid Disease Cardiovascular History: Reports: Hx Hypertension - on medications Denies: Hx Congestive Heart Failure Respiratory History: Denies: Hx Asthma, Hx Chronic Obstructive Pulmonary Disease (COPD) GI History: Reports: Hx Gastroesophageal Reflux Disease - TAKES OMEPRAZOLE DAILY Denies: Hx Ulcer History: Denies: Hx Dialysis, Hx Renal Disease Musculoskeletal History: Denies: Hx Rheumatoid Arthritis Sensory History: Reports: Hx Contacts or Glasses Denies: Hx Hearing Aid Opthamlomology History: Reports: Hx Contacts or Glasses EENT History: Denies: Hx Deafness Neurological History: Denies: Hx Dementia Psychiatric History: Reports: Hx Depression - TAKES LEXAPRO - Cancer History Hx Chemotherapy: No - Surgical History Surgery Procedure, Year, and Place: Vein stripping 2010 Dr Quinonez 5X. Hx Anesthesia Reactions: No Infectious Disease History: No Infectious Disease History: Denies: Hx Hepatitis, Hx Human Immunodeficiency Virus (HIV), Traveled Outside the [place] in Last 30 Days - Family History Known Family History: Positive: Hypertension, Diabetes - Social History Alcohol Use: None Substance Use Type: Reports: None Smoking Status (MU): Never Smoked Tobacco Have You Smoked in the Last Year: No Review of Systems Constitutional: Negative Eyes: Negative ENT: Negative Cardiovascular: Other - lateral chest wall pain Respiratory: Negative Gastrointestinal: Negative Genitourinary: Negative Musculoskeletal: Negative Skin: Negative Neurological: Negative Psychological: Normal All Other Systems Reviewed And Are Negative: Yes Physical Exam - Summary Physical Exam Summary: No ecchymosis, erythema, deformity, swelling noted to bilateral chest wall. Tenderness to palpation. No CVA tenderness on right side. No paraspinal tenderness. No right upper quadrant or right lower quadrant tenderness. Abdominal exam unremarkable. Lung sounds clear to auscultation bilaterally. RRR. Triage Information Reviewed: Yes Vital Signs On Initial Exam: Initial Vitals Temp Pulse Resp BP Pulse Ox 98.4 F 74 18 156/67 97 06/17/19 17:53 06/17/19 17:53 06/17/19 17:53 06/17/19 17:53 06/17/19 17:53 Vital Signs Reviewed: Yes Appearance: Positive: Well-Appearing Skin: Positive: Warm Head/Face: Positive: Normal Head/Face Inspection Eyes: Positive: Normal Neck: Positive: Supple Respiratory/Lung Sounds: Positive: Clear to Auscultation Cardiovascular: Positive: Normal Abdomen Description: Positive: Nontender Musculoskeletal: Positive: Normal Neurological: Positive: Normal Psychiatric: Positive: Normal AVPU Assessment: Alert - [place] Coma Scale Best Eye Response: 4 - Spontaneous Best Motor Response: 6 - Obeys Commands Best Verbal Response: 5 - Oriented Coma Scale Total: 15 Diagnostics - Vital Signs Vital Signs Temp Pulse Resp BP Pulse Ox 06/17/19 17:53 98.4 F 74 18 156/67 97 - Laboratory Result Diagrams: 06/17/19 18:19 06/17/19 18:19 Lab Statement: Any lab studies that have been ordered have been reviewed, and results considered in the medical decision making process. Chest Pain Course/Dx - Course Course Of Treatment: Patient complains of sudden onset upper right lateral chest wall pain starting this afternoon. Pain initially mild, but has been progressive. Worse with movement, deep inhalation, described as sharp, constant. Denies fever, cough, sore throat, CP, SOB, N/V/D, abdominal pain, change in urine, change in BM, vaginal symptoms. Medical history is HTN, GERD. History of acalculus cholecystitis with gallbladder removed in September 2018. Nonsmoker. Denies cardiac history. Took ibuprofen 400 mg at 3 PM with no relief. Vital signs within normal limits. Glucose 287. Patient denies history of diabetes, family states patientis diabetic but is noncompliant. Advised patient long-term health effects of diabetes. Labs otherwise unremarkable. X-ray of ribs and chest unremarkable. EKG sinus rhythm, with inverted T waves in leads 3, mild ST depression in the 4, V5, V6. EKG unchanged from prior. Patient had progressive pain while here in the ED. CT was ordered, essentially unremarkable. Diagnosis chest wall pain. - Diagnoses Provider Diagnoses: Right-sided chest wall pain Discharge ED - Sign-Out/Discharge Documenting (check all that apply): Patient Departure Patient Received Moderate/Deep Sedation with Procedure: No - Discharge Plan Condition: Stable Disposition: HOME Prescriptions: Oxycodone HCl 5 mg PO TID 3 Days #9 tablet MDD 3 tabs Patient Education Materials: Chest Wall Pain (ED) Referrals: Pamela Cadena MD [Primary Care Provider] - Additional Instructions: Taking oxycodone as directed for pain as needed. Return to the ED for any new or worsening symptoms. - Billing Disposition and Condition Condition: STABLE Disposition: Home - Attestation Statements Provider Attestation: I was available for consult. This patient was seen by the ADELAIDA. The patient was not presented to, seen by, or examined by me. Cuong Pablo MD
[2019-06-17 18:27] LABS: ABS Basophils 0.1 10^3/ul (0-0.2); ABS Lymphocytes 2.5 10^3/ul (1.0-4.8); ABS Monocytes 0.7 10^3/ul (0-0.8); ABS Neutrophils 6.7 10^3/ul (1.5-7.7); Eosinophil % 0.5 %; Hematocrit 39 % (35-47); Hemoglobin 13.5 g/dL (12.0-16.0); Lymphocyte % 25.2 %; Mean Corpuscular HGB Conc 35 g/dL (31-36); Mean Corpuscular Hemoglobin 30 pg (27-31); Mean Corpuscular Volume 87 fL (80-97); Mean Platelet Volume 8.7 fL (7.4-10.4); Nucleated Red Blood Cells % 0.1; Platelet Count 174 10^3/uL (150-450); Red Blood Count 4.46 10^6 /uL (3.70-4.87); Red Cell Distribution Width 14 % (10-15)
[2019-06-17] MEDS ORDERED: oxyCODONE TAB* 5 MG TAB PO ONE ×2 (18:30→21:31)
[2019-06-17 18:47] LABS: Albumin 3.9 g/dL (3.2-5.2); Albumin/Globulin Ratio 1.8 (1-3); BUN/Creatinine Ratio 15.7 (8-20); C Reactive Protein 11.8 mg/L (<8.01); Calcium 9.1 mg/dL (8.6-10.3); EGFR African American 101.9 (>60); EGFR Non-African American 84.2 (>60); Globulin 2.2 g/dL (2-4); Total Bilirubin 0.4 mg/dL (0.2-1.0); Total Protein 6.1 g/dL (6.4-8.9)
[2019-06-17 19:37] LABS: Urine Appearance Clear; Urine Bilirubin Negative (Negative); Urine Blood Negative (Negative); Urine Color Yellow; Urine Glucose 3+(>=500 mg/dL) (Negative); Urine Ketones Negative (Negative); Urine Nitrite Negative (Negative); Urine Protein Negative (Negative); Urine Specific Gravity 1.023 (1.010-1.030); Urine Urobilinogen Negative (Negative)
[2019-06-17 21:57] VITALS: BP 117/55
[2019-06-17] MEDS ORDERED: HYDROmorphone INJ1* 1 MG/ML SYRINGE IM ONE (22:25)
[2019-06-17] MEDS ORDERED: diPHENhydraMINE PO* 50 MG PO ONE (22:26)
[2019-06-17] MEDS ORDERED: Iohexol 300* (CONTRAST) 10 ML SDV IV ONE (22:31)
== END 2019-06-17 21:56 | disposition home or self-care (01) ==
LOC: ED 17:50
DX: R07.89 Other chest pain (principal); J90 Pleural effusion, not elsewhere classified; J98.11 Atelectasis; I10 Essential (primary) hypertension; K21.9 Gastro-esophageal reflux disease without esophagitis; Z79.899 Other long term (current) drug therapy; Z91.040 Latex allergy status
CPT/HCPCS: 36415; 71260; 80053; 81003; 83690; 84484; 85025; 85379; 86140; 93005; 96372; 99283; A9270-GY; J1170; Q9967